=== PATIENT | male | born 1945 ===

== ENCOUNTER 2018-01-15 09:58 | Inpatient (IN) | payer OTHER ==
[~2018-01-15] VITALS: Ht 180.3 cm; Wt 79.4 kg
[2018-01-15] MEDS ORDERED: GLIMEPIRIDE2 MG PO (11:00)
[2018-01-15] MEDS ORDERED: ZIAC 2.5-6.251 EACH PO (11:00)
[2018-01-15] MEDS ORDERED: SYNTHROID100 MCG PO (11:00)
[2018-01-15] MEDS ORDERED: INVOKANA100 MG PO (11:01)
[2018-01-15] MEDS ORDERED: TRAMADOL HCL50 MG PO (11:01)
[2018-01-24] MEDS ORDERED: DOCUSATE SODIU100 MG PO (07:52)
[2018-01-24] MEDS ORDERED: PERCOCET 5-3251 EACH PO (07:53)
[2018-01-24] MEDS ORDERED: CLONAZEPAM1 MG PO (07:53)
== END 2018-01-24 14:07 | disposition home or self-care (01) | DRG 454 ==
LOC: O/R 01-23 04:25 → PED 01-23 04:25 → SURH 01-23 07:00 → PED 01-23 14:29
PROVIDERS: Orthopaedic Surgery Orthopaedic Surgery of the Spine
PROC: 0RG2071 Fusion of 2 or more Cervical Vertebral Joints with Autologous Tissue Substitute, Posterior Approach, Posterior Column, Open Approach (ICD-10-PCS; 2018-01-23)
PROC: 0RT30ZZ Resection of Cervical Vertebral Disc, Open Approach (ICD-10-PCS; 2018-01-23)
PROC: 07DS3ZZ Extraction of Vertebral Bone Marrow, Percutaneous Approach (ICD-10-PCS; 2018-01-23)
PROC: 0RG20A0 Fusion of 2 or more Cervical Vertebral Joints with Interbody Fusion Device, Anterior Approach, Anterior Column, Open Approach (ICD-10-PCS; principal; 2018-01-23 07:00)
DX: M50.01 Cervical disc disorder with myelopathy, high cervical region (principal); M47.12 Other spondylosis with myelopathy, cervical region; E11.9 Type 2 diabetes mellitus without complications; I10 Essential (primary) hypertension; E03.8 Other specified hypothyroidism